=== PATIENT | female | born 1995 | race Caucasian/White ===

== ENCOUNTER 2016-12-18 07:46 | Emergency (ER) | payer MEDICAID ==
[2016-12-18 07:56] VITALS: BP 110/69
--- NOTE | 2016-12-18 18:25 | Emergency Department Report ---
Entered by MAG BARRIENTOS, acting as scribe for BOGDAN MCDERMOTT NP. - General Chief complaint: Skin/Abscess/Foreign Body Stated complaint: ABCESS ON BOTTOM Time Seen by Provider: 12/18/16 10:04 Source: patient Mode of arrival: Ambulatory Limitations: No Limitations - History of Present Illness Initial comments: This is a 21 y/o female, nontoxic, well nourished in appearance, no acute signs of distress presents with abscess to peripubic area x 1 week. Patient stated had boil last week and then started drainge pus last night. Associated symptoms include pain and purulent drainage but denies fever, chills, nausea, chest pain, shortness of breath, stiff neck, headache, and vomiting. Patient states abscess popped last night. No alleviating or aggravating factors. NKDA. LMP:08/21/16. 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 MD complaint: foreign body Onset/Timin -: week(s) Tetanus Up to Date: unsure Severity: mild Severity scale (0 -10): 6 Quality: aching Consistency: constant Improves with: none Context: none Associated symptoms: denies other symptoms, other (denies: fever, chills, nausea and vomiting) Treatments Prior to Arrival: none - Related Data Previous Rx's Medication Instructions Recorded Last Taken Type Amoxicillin/K Clav Tab [Augmentin 1 tab PO Q12HR #14 tab 12/18/16 Unknown Rx 875 mg] Allergies Allergy/AdvReac Type Severity Reaction Status Date / Time No Known Allergies Allergy Verified 12/18/16 07:58 Abscess Boil HPI - HPI Chief Complaint: Skin/Abscess/Foreign Body Stated Complaint: ABCESS ON BOTTOM Time Seen by Provider: 12/18/16 10:04 Home Medications: Previous Rx's Medication Instructions Recorded Last Taken Type Amoxicillin/K Clav Tab [Augmentin 1 tab PO Q12HR #14 tab 12/18/16 Unknown Rx 875 mg] Allergies/Adverse Reactions: Allergies Allergy/AdvReac Type Severity Reaction Status Date / Time No Known Allergies Allergy Verified 12/18/16 07:58 ED Review of Systems Comment: All other systems reviewed and negative Constitutional: denies: chills, fever Eyes: denies: eye pain, eye discharge, vision change ENT: denies: ear pain, throat pain Respiratory: denies: cough, shortness of breath, wheezing Cardiovascular: denies: chest pain, palpitations Endocrine: no symptoms reported Gastrointestinal: denies: nausea, vomiting Genitourinary: denies: urgency, dysuria, discharge Musculoskeletal: denies: back pain, joint swelling, arthralgia Skin: other (abscess, pain, purulent drainage) Neurological: denies: headache, weakness, paresthesias Psychiatric: denies: anxiety, depression Hematological/Lymphatic: denies: easy bleeding, easy bruising ED Past Medical Hx - Past Medical History Previous Medical History?: No - Surgical History Past Surgical History?: Yes Additional Surgical History: back - Social History Smoking Status: Never Smoker Substance Use Type: None - Medications Home Medications: Home Medications Medication Instructions Recorded Confirmed Last Taken Type Amoxicillin/K Clav Tab [Augmentin 1 tab PO Q12HR #14 tab 12/18/16 Unknown Rx 875 mg] ED Physical Exam - General Limitations: No Limitations General appearance: alert, in no apparent distress - Head Head exam: Present: atraumatic, normocephalic, normal inspection - Eye Eye exam: Present: normal appearance, PERRL, EOMI. Absent: scleral icterus, conjunctival injection, nystagmus, periorbital swelling, periorbital tenderness - ENT ENT exam: Present: normal exam, normal orophraynx, mucous membranes moist, TM's normal bilaterally, normal external ear exam - Neck Neck exam: Present: normal inspection, full ROM. Absent: tenderness, meningismus, lymphadenopathy, thyromegaly - Respiratory Respiratory exam: Present: normal lung sounds bilaterally. Absent: respiratory distress, wheezes, rales, rhonchi, stridor, chest wall tenderness, accessory muscle use, decreased breath sounds, prolonged expiratory - Cardiovascular Cardiovascular Exam: Present: regular rate, normal rhythm, normal heart sounds. Absent: bradycardia, tachycardia, irregular rhythm, systolic murmur, diastolic murmur, rubs, gallop - GI/Abdominal GI/Abdominal exam: Present: soft, normal bowel sounds. Absent: distended, tenderness, guarding, rebound, rigid, diminished bowel sounds - Rectal Rectal exam: Present: deferred - Extremities Exam Extremities exam: Present: normal inspection, full ROM, normal capillary refill. Absent: tenderness, pedal edema, joint swelling, calf tenderness - Back Exam Back exam: Present: normal inspection, full ROM. Absent: tenderness, CVA tenderness (R), CVA tenderness (L), muscle spasm, paraspinal tenderness, vertebral tenderness, rash noted - Neurological Exam Neurological exam: Present: alert, oriented X3, CN II-XII intact, normal gait, reflexes normal - Psychiatric Psychiatric exam: Present: normal affect, normal mood - Skin Skin exam: Present: other (1 cm open would, mid peripubic area, purulent drainage, no induration, no fluctuance, tender to palpate. No swelling or erythema noted. No surrounding cellulitis noted.) ED Course Vital Signs 12/18/16 07:54 Temperature 98.2 F Pulse Rate 67 Blood Pressure 110/69 O2 Sat by Pulse 97 Oximetry - Reevaluation(s) Reevaluation #1: 12/18/16 11:14 Patient is speaking full sentences with no signs of distress. ED Disposition Clinical Impression: Open wound Disposition: DC-01 TO HOME OR SELFCARE Is pt being admited?: No Does the pt Need Aspirin: No Condition: Stable Instructions: Abscess (ED), Amoxicillin/Clavulanate Potassium (By mouth) Additional Instructions: Follow-up with a primary care doctor in 3-5 days or symptoms such as increased swelling, redness, or worsening symptoms return to emergency room as soon as possible. Prescriptions: Amoxicillin/K Clav Tab [Augmentin 875 mg] 1 tab PO Q12HR #14 tab Referrals: PRIMARY CARE, [Primary Care Provider] - 3-5 Days JANNETH DELAROSA MD [Staff Physician] - 3-5 Days [facility] [Outside] - 3-5 Days [facility] [Outside] - 3-5 Days Forms: Work/School Release Form(ED) This documentation as recorded by the ILIANA owen ELIZABETH,accurately reflects the service I personally performed and the decisions made by me,BOGDAN MCDERMOTT, MARIBEL.
== END 2016-12-18 11:20 | disposition home or self-care (01) ==
LOC: ED 07:46
DX: S31.000A Unspecified open wound of lower back and pelvis without penetration into retroperitoneum, initial encounter (principal); N73.9 Female pelvic inflammatory disease, unspecified; X58.XXXA Exposure to other specified factors, initial encounter; Y93.9 Activity, unspecified; Y92.9 Unspecified place or not applicable; Y99.9 Unspecified external cause status
CPT/HCPCS: 99281

== ENCOUNTER 2017-04-30 18:55 | Outpatient (CLI) | payer MEDICAID, OTHER ==
[2017-04-30 19:27] VITALS: BP 118/80
== END 2017-04-30 21:41 | disposition home or self-care (01) ==
LOC: TRG 18:55
PROVIDERS: ATTEND Obstetrics & Gynecology
DX: O47.1 False labor at or after 37 completed weeks of gestation (principal); Z3A.38 38 weeks gestation of pregnancy